=== PATIENT | male | born 1960 | race Caucasian/White ===

== ENCOUNTER 2017-04-04 12:44 | Outpatient (CLI) | payer BC ==
--- NOTE | 2017-04-04 18:19 | MRI ---
MRI OF THE CERVICAL SPINE WITHOUT CONTRAST: 04/04/2017 COMPARISON: None. HISTORY: Cervical radiculopathy. TECHNIQUE: Multiplanar, multisequence MR imaging of the cervical spine is provided without contrast. FINDINGS: There is mild degenerative change at the atlantoaxial interspace. The sagittal STIR imaging demonst rates no focal area of osseous marrow edema. C2-3: Intervertebral disk height and signal intensity is within normal limits. No central canal or neural foraminal stenosis. C3-4: Mild left-sided facet hypertrophy. Minimal disk bulge. No central canal or neural foraminal stenosis. C4-5: There is disk space narrowing and disk desiccation with anterior osteophyte formation and dis k bulge. This partially effaces the ventral thecal sac and leads to a mild degree of central canal stenosis. There is mild/moderate bilateral neural foraminal stenosis on the basis of facet and unco vertebral osteophyte formation, left greater than right. C5-6: There is disk space narrowing, disk desiccation, and mild disk bulge with partial effacement of the ventral thecal sac and mild central canal stenosis. There is bilateral facet and uncovertebr al osteophyte formation, left greater than right. There is moderate right and severe left neural fo raminal stenosis. There may be a superimposed small foraminal disk protrusion on the left. C6-7: There is disk desiccation and mild disk bulge. There is a central annular tear. There is no significant central canal or neural foraminal stenosis. C7-T1: No significant central canal or neural foraminal stenosis. There is no focal area of abnormal signal intensity identified within the cervical cord. No focal area of abnormal signal intensity is identified within the imaged osseous structures. Overall, there is diffuse central canal stenosis on the basis of congenitally short pedicles. IMPRESSION: Areas of degenerative disk disease as detailed above. There is diffuse central canal stenosis on th e basis of congenitally short pedicles. POS: [facility]
== END 2017-04-04 12:45 | disposition home or self-care (01) ==
LOC: MRI 12:44
PROVIDERS: ATTEND Family Medicine
DX: M50.10 Cervical disc disorder with radiculopathy, unspecified cervical region (principal); M48.02 Spinal stenosis, cervical region
CPT/HCPCS: 72141

== ENCOUNTER 2017-11-07 08:01 | Outpatient (CLI) | payer BC ==
[2017-11-07 09:23] LABS: #Basophils 0.1 thou/uL (0.0-0.2); #Eosinphils 0.3 thou/uL (0.0-0.7); #Lymphocytes 2.6 thou/uL (1.20-3.40); #Monocytes 0.7 thou/uL (0.11-0.59); #Neutrophils 3.3 thou/uL (1.40-6.50); %Basophils 1.3 % (0.0-1.0); %Eosinophils 4.2 % (0.0-10.0); %Lymphocytes 37.6 % (21.0-51.0); %Monocytes 9.4 % (0.0-10.0); %Neutrophils 47.6 % (42.0-75.0); Hemoglobin 15.5 g/dL (14.0-18.0); Mean Corpuscular HGB CONC 34.1 g/dL (32.0-36.0); Mean Corpuscular Hemoglobin 30.7 pg (27.0-31.0); Mean Corpuscular Volume 90.1 fl (80.0-94.0); Mean Platelet Volume 7.9 fL (7.4-10.4); Platelet Count 225 thou/uL (130-400); RBC Distribution Width 12.1 % (11.5-14.5); Red Blood Cell (RBC) Count 5.04 mill/uL (4.70-6.10)
[2017-11-07 10:31] LABS: Anion Gap 10 mmol/L (10-20); BUN (Urea Nitrogen) 11 mg/dL (8.4-25.7); Calc. Creatinine Clearance 0 mL/min (70-130); Calcium 9.4 mg/dL (7.8-10.44); Carbon Dioxide 29 mmol/L (22-29); Chloride 102 mmol/L (98-107); Estimated GFR-MDRD 88; Glucose 98 mg/dL (70-105); Potassium 4.3 mmol/L (3.5-5.1); Sodium 137 mmol/L (136-145)
== END 2017-11-07 08:02 | disposition home or self-care (01) ==
LOC: LABBT 08:01
PROVIDERS: ATTEND Neurological Surgery
DX: Z01.818 Encounter for other preprocedural examination (principal); M54.12 Radiculopathy, cervical region
CPT/HCPCS: 80048; 85025; 93005; 93010

== ENCOUNTER 2017-11-14 08:05 | Day surgery (SDC) | payer BC ==
[2017-11-07 08:31] VITALS: BMI 34.9
[2017-11-14] MEDS ORDERED: CEFAZOLIN/Water 2 GM/20 ML SYRINGE ONE (08:23)
[2017-11-14] MEDS ORDERED: Midazolam HCl 2 mg/2 ml Vial ONE (08:48)
[2017-11-14] MEDS ORDERED: Fentanyl 100 MCG/2 ML VIAL ONE ×2 (08:48→10:53)
[2017-11-14] MEDS ORDERED: Sodium Chloride 0.9% 10 ML ONE (10:29)
--- NOTE | 2017-11-14 12:03 | OP ---
DATE OF PROCEDURE: 11/14/2017 SURGEON: Jon Townsend M.D. EXCEPTIONAL STUDENT EDUCATION AIDE: None. PROCEDURE: Anterior cervical discectomy C4-5 and C5-6, interbody arthrodesis, intravertebral biomech anical device, local morselized autograft, demineralized bone matrix, anterior titanium instrumentati on C4-5 and C5-6. PROCEDURE IN DETAIL: The patient was brought into the operating room, intubated. He was positioned supine, head in modest extension on a gel-filled donut. Incision was made in the right precervical a bela and dissecting medial to the sternocleidomastoid muscle, identified the anterior cervical spine, and our level was confirmed by x-ray. We debrided anterior osteophytes, placed distraction across th e disk spaces, and using the operating microscope and microdissection techniques, completely removed the C4-5 and C5-6 disks, decompressing the spinal cord and neural elements down to the level of the d ura. The bony endplates were then decorticated for the purpose of arthrodesis and appropriately size d intravertebral biomechanical PEEK device was brought into the field, filled with demineralized bone matrix and local morselized autograft and tapped into place securely at C4-5 and C5-6. Next, an ant erior plate was brought into the field and secured to C4, C5, and C6 using two 14 mm screws at each l evel. The wound was then extensively irrigated, immaculate hemostasis was secured, and the wound was closed in anatomic layers.
[2017-11-14] MEDS ORDERED: Morphine 4 MG/ML VIAL ONE (12:15)
[2017-11-14] MEDS ORDERED: HYDROcodone/Acetaminophen 5/325 mg Tablet ONE ×3 (12:28→12:30)
[2017-11-14] MEDS ORDERED: Glycopyrrolate 0.2 MG/ML 5 ML SYRINGE ONE (12:29)
[2017-11-14] MEDS ORDERED: PROPOFOL 200 MG/20 ML VIAL ONE (12:29)
[2017-11-14] MEDS ORDERED: Dexamethasone 20 MG/5 ML VIAL ONE (12:29)
[2017-11-14] MEDS ORDERED: Ondansetron HCl/PF 4 MG/2 ML Vial ONE (12:29)
[2017-11-14] MEDS ORDERED: HYDROcodone/Acetaminophen 10/325 mg Tablet ONE (12:34)
[2017-11-14] MEDS ORDERED: tiZANidine HCl 4 MG TAB ONE (13:25)
== END 2017-11-14 13:40 | disposition home or self-care (01) ==
LOC: SDC 08:05
PROVIDERS: ATTEND Neurological Surgery
DX: M48.02 Spinal stenosis, cervical region (principal)
CPT/HCPCS: 76001; 96374; A4216; C1713; C1776; J2250; J2270; J3010; J3490

== ENCOUNTER 2017-11-29 10:39 | Outpatient (CLI) | payer BC ==
--- NOTE | 2017-11-29 12:43 | RAD ---
CERVICAL SPINE THREE VIEWS: History: Neck pain. Recent surgery. FINDINGS: Anterior fixation plate and screws are in place at the C4-5-6 levels without perihardware lucency. Me tallic markers associated with interbody fusion appear within the confines of the disc spaces at the post-operative levels. Vertebral body height and alignment are maintained. No acute fracture, disloca tion, or aggressive osseous erosions. IMPRESSION: Post-operative changes and inferior fixation lower cervical spine. No evidence of hardware complicati on. POS: [facility]
== END 2017-11-29 10:40 | disposition home or self-care (01) ==
LOC: TBSIIMAG 10:39
PROVIDERS: ATTEND Neurological Surgery
DX: M54.12 Radiculopathy, cervical region (principal); Z98.890 Other specified postprocedural states
CPT/HCPCS: 72040

== ENCOUNTER 2018-01-05 13:39 | Outpatient (CLI) | payer BC ==
--- NOTE | 2018-01-05 15:00 | RAD ---
THREE VIEW CERVICAL SPINE: Comparison: 11-29-17 FINDINGS: On the AP projection there is no malalignment. Cervical fusion hardware at C4, C5, and C6 is noted. S table positioning of the anterior fusion plate. Stable positioning of the disc prosthesis at C4-5 and C5-6. Stable grade I retrolisthesis of C4 upon C5 and C5 upon C6. Vertebral body height is maintaine d. No fracture. Predental space is normal. Open mouth projection is unremarkable. IMPRESSION: Stable cervical fusion changes. POS: [facility]
== END 2018-01-05 13:40 | disposition home or self-care (01) ==
LOC: TBSIIMAG 13:39
PROVIDERS: ATTEND Neurological Surgery
DX: M50.30 Other cervical disc degeneration, unspecified cervical region (principal); Z98.1 Arthrodesis status
CPT/HCPCS: 72040